=== PATIENT | male | born 1975 | race Caucasian/White ===

== ENCOUNTER 2017-06-10 18:27 | Emergency (ER) | payer OTHER ==
[~2017-06-10] VITALS: Ht 172.7 cm; Wt 99.8 kg
[2017-06-10 18:27] VITALS: BP 148/95
== END 2017-06-10 20:23 | disposition home or self-care (01) ==
LOC: ER 18:37
DX: J38.4 Edema of larynx (principal); F10.10 Alcohol abuse, uncomplicated; F17.200 Nicotine dependence, unspecified, uncomplicated
CPT/HCPCS: 71046; 99284; A4606; Z7610

== ENCOUNTER 2019-04-16 15:39 | Emergency (ER) | payer SELFPAY ==
[~2019-04-16] VITALS: Ht 172.7 cm; Wt 104.3 kg
--- NOTE | 2019-04-16 15:50 | NUR ---
NOTICED WOUND AT THE BUTTOCKS AREA 3 DAYS AGO. PATIENT A/OX4, BREATHING EVEN AND UNLABORED, NO SOB NOTED.
[2019-04-16] MEDS ORDERED: HYDROCODONE/APAP 5/325MG 1 EACH TABLET ONE (15:57)
[2019-04-16] MEDS ORDERED: HYDROCODONE/APAP 5/325MG 1 EACH TABLET PO ONE (16:00)
[2019-04-16] MEDS ORDERED: LIDOCAINE 1%-EPI 1:100,000 20 ML VIAL ONE (16:10)
--- NOTE | 2019-04-16 16:15 | NUR ---
AT BEDSIDE FOR I&D.
[2019-04-16] MEDS ORDERED: ACETAMINOPHEN ES 500 MG TABLET ONE (16:23)
[2019-04-16] MEDS ORDERED: ACETAMINOPHEN ES 500 MG TABLET PO ONE (16:30)
--- NOTE | 2019-04-16 16:37 | NUR ---
WOUND CLEANSED AND PACKED BY DR. VARGAS.
[2019-04-16 16:39] VITALS: BP 155/88
--- NOTE | 2019-04-16 16:39 | NUR ---
Patient discharged to home in stable condition. Written and verbal after care instructions given. Patient verbalizes understanding of instruction.
== END 2019-04-16 16:40 | disposition home or self-care (01) ==
LOC: ER 15:50
DX: L05.01 Pilonidal cyst with abscess (principal); F10.10 Alcohol abuse, uncomplicated; F17.200 Nicotine dependence, unspecified, uncomplicated; Y90.9 Presence of alcohol in blood, level not specified
CPT/HCPCS: 10080; 99284; A6403; A6407; J3490

== ENCOUNTER 2023-11-22 18:21 | Emergency (ER) | payer MEDICAID ==
[~2023-11-22] VITALS: Ht 175.3 cm; Wt 99.8 kg
[2023-11-22 19:10] LABS: APPEARANCE,URINE SLIGHTLY CLOUDY (CLEAR); BILIRUBIN,URINE NEGATIVE (NEGATIVE); BLOOD, URINE 3+ Ery/uL (NEGATIVE); COLOR,URINE YELLOW (YELLOW); KETONES,URINE NEGATIVE (NEGATIVE); LEUKOCYTE ESTERASE ,URINE NEGATIVE (NEGATIVE); NITRITE, URINE NEGATIVE (NEGATIVE); PROTEIN,URINE 2+ mg/dl (NEGATIVE); UGLUCOSE TRACE mg/dL (NEGATIVE); UROBILINOGEN,URINE 0.2 EU/dL (0.2)
[2023-11-22 19:18] LABS: ADD URINE CULTURE NO; BACTERIA,URINE None seen /HPF (None Seen); RBC,URINE 51-80 /HPF (0-2); SQUAMOUS EPITHELIAL CELL,UR 0-2 /HPF (None Seen); WBC,URINE 0-2 /HPF (0-3)
[2023-11-22 19:27] LABS: BASOPHILS # (AUTO) 0.2 K/uL (0.0-0.2); EOSINOPHILS # (AUTO) 0.5 K/uL (0.0-0.7); EOSINOPHILS % (AUTO) 2.7 % (0.0-6.0); HEMATOCRIT 43 % (39-51); HEMOGLOBIN 14.6 g/dL (13.5-17.5); LYMPHOCYTES # (AUTO) 4.6 K/uL (0.8-4.8); LYMPHOCYTES % (AUTO) 27.8 % (20.0-44.0); MEAN CORPUSCULAR HEMOGLOBIN 29 PG (26.0-33.0); MEAN CORPUSCULAR HGB CONC 34 g/dl (31.0-36.0); MEAN CORPUSCULAR VOLUME 85 fL (80-96); MONOCYTES % (AUTO) 6.1 % (2.0-12.0); NEUTROPHILS # (AUTO) 10.4 K/uL (1.8-8.9); NEUTROPHILS % (AUTO) 62.4 % (43.0-81.0); PLATELET COUNT (AUTO) 245 K/uL (150-450); RED BLOOD CELL COUNT(AUTO) 5.02 MIL/uL (4.5-6.0); RED CELL DISTRIBUTION WIDTH 13.9 % (11.5-15.0); WHITE BLOOD COUNT (AUTO) 16.7 K/uL (4.3-11.0)
[2023-11-22 19:42] LABS: CREATININE 0.6 mg/dL (0.6-1.3); POTASSIUM 3.6 mmol/L (3.5-5.1)
[2023-11-22 19:46] LABS: ALBUMIN 3.2 g/dL (3.4-5.0); BILIRUBIN,DIRECT 0.1 mg/dL (0.0-0.2); BILIRUBIN,TOTAL 0.4 mg/dL (0.2-1.0); TOTAL PROTEIN, SERUM 7.2 g/dL (6.4-8.2)
[2023-11-22] MEDS ORDERED: TAMS-12 PO (20:22)
[2023-11-22] MEDS ORDERED: IBUP-1955 PO (20:22)
[2023-11-22 20:26] VITALS: BP 144/90; TEMP 98.3; O2SAT 99
== END 2023-11-22 20:26 | disposition home or self-care (01) ==
LOC: ER 18:21
DX: N20.0 Calculus of kidney (principal); F17.200 Nicotine dependence, unspecified, uncomplicated; Z79.1 Long term (current) use of non-steroidal anti-inflammatories (NSAID)
CPT/HCPCS: 36415; 80048-TC; 80076-TC; 81001; 85025-TC

== ENCOUNTER 2024-11-06 07:59 | Emergency (ER) | payer SELFPAY ==
[~2024-11-06] VITALS: Ht 172.7 cm; Wt 99.8 kg
[~2024-11-06 07:59] MED LIST: IBUP-1955 PO; TAMS-12 PO
[2024-11-06 08:10] VITALS: BP 136/82; TEMP 98.2
[2024-11-06] MEDS ORDERED: KETOROLAC TROMETHAMINE INJ 30 MG/ML VIAL ONE (08:45)
[2024-11-06] MEDS ORDERED: CYCL5TAB PO (08:46)
[2024-11-06] MEDS: KETOROLAC TROMETHAMINE INJ 30 MG/ML VIAL IM ONE (08:49)
[2024-11-06 08:51] VITALS: O2SAT 98
== END 2024-11-06 08:53 | disposition home or self-care (01) ==
LOC: ER 08:08
DX: G56.00 Carpal tunnel syndrome, unspecified upper limb (principal); M25.532 Pain in left wrist; F17.200 Nicotine dependence, unspecified, uncomplicated; Z79.1 Long term (current) use of non-steroidal anti-inflammatories (NSAID); Z79.899 Other long term (current) drug therapy
CPT/HCPCS: 99283; 96372; J1885